=== PATIENT | female | born 1995 | race Caucasian/White ===

== ENCOUNTER → 2016-11-01 | Day surgery (SDC) | payer MEDICAID ==
[~2016-11-01] VITALS: Ht 160 cm; Wt 61.7 kg
[~2016-11-01] MED LIST: BROMFED DM COU118 ML PO; CEFUROXIME AXE250 MG PO; FLONASE 50 MCG16 GM; LORTAB 480 ML480 ML PO; NOMEDS; PREDNISONE 20MG20 MG PO; PREDNISONE1 MG PO; YASMIN 3 MG-0.01 TAB PO
--- NOTE | 2016-11-01 14:05 | Anesthesia Record ---
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
--- NOTE | 2016-11-01 14:05 | Anesthesia Record ---
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
--- NOTE | 2016-11-01 14:06 | Anesthesia Record ---
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 Yes Patient is: Stable Anesthesia complications? No at 1405
--- NOTE | 2016-11-01 14:06 | Anesthesia Record ---
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 Yes Patient is: Stable Anesthesia complications? No at 1405
[2016-11-01 14:18] VITALS: BP 124/73
--- NOTE | 2016-11-01 14:36 | RADIOLOGY REPORT PS360 ---
Procedure: Transesophageal echocardiogram Indication for procedure: Shortness of breath with is activity, mitral valve prolapse evaluate the severity of the mitral regurgitation. Procedure: Patient was brought into cardiac catheter lab holding area in hemodynamically stable condition, after the informed consent moderate conscious sedation was provided by anesthesiologist, local anesthesia was applied and transesophageal echocardiogram was performed without any difficulty. Tissue tolerated the procedure well. Findings: 1. Left atrium is qualitatively moderately enlarged, left atrial appendage is free of thrombus, there is good appendage flow by spectral Doppler. 2. The right atrium is normal size. 3. The intra-atrial septum is intact, there is no flow across the intra-atrial septum. 4. The mitral valve leaflets of myxomatous, there appears to be yamilet prolapse of the posterior mitral leaflet involving mainly p2 segment, there is very eccentric jet of mitral regurgitation present with wide vena contracta representing severe mitral regurgitation. The mitral regurgitation jet is very eccentric directed. There is no mitral stenosis. 5. The tricuspid valve leaflets are minimally thickened, there is trace tricuspid regurgitation. 6. The aortic valve is minimally thickened and fibrosed, its trileaflet aortic valve, there is mild aortic insufficiency present. 7. The pulmonic valve is poorly visualized. 8. Right ventricle is normal size and contractility. 9. The left ventricle is normal size, visually estimated ejection fraction of 55% with no obvious regional wall motion abnormality. 10. Ascending, arch and descending thoracic aorta is normal. 11. No significant pericardial effusion noted. Conclusion: 1. Moderately enlarged left atrium, normal left ventricular size, visually estimated ejection fraction of 55% with no obvious regional wall motion abnormality. 2. 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 3. Agitated saline contrast study fails to identify intracardiac shunt. 4. Mild aortic regurgitation. 5. No significant pericardial effusion noted.
== END ==
LOC: CATHLAB 11:30
PROVIDERS: Internal Medicine Cardiovascular Disease
PROC: B246ZZ4 Ultrasonography of Right and Left Heart, Transesophageal (ICD-10-PCS; principal; 2016-11-01 12:00)
DX: I34.0 Nonrheumatic mitral (valve) insufficiency (principal)
CPT/HCPCS: G0463; J2405

== ENCOUNTER → 2016-11-09 | Outpatient (CLI) | payer MEDICAID | LOC: RT 09:17 | DX: R07.9 Chest pain, unspecified (principal); R06.02 Shortness of breath; I34.0 Nonrheumatic mitral (valve) insufficiency; I34.1 Nonrheumatic mitral (valve) prolapse; R68.89 Other general symptoms and signs ==

== ENCOUNTER 2016-11-17 07:21 | Day surgery (SDC) | payer MEDICAID ==
[2016-11-17 07:57] LABS: HEMOGLOBIN 12.6 g/dL (12.2-16.2); LYMPH # 1.2 K/mm3 (0.7-4.5); LYMPH % 18.8 % (10-50.0)
[2016-11-17 08:01] LABS: BUN 9 mg/dL (7-18)
[2016-11-17 08:02] LABS: GFR (ESTIMATED) 106 ML/MIN (59-)
--- NOTE | 2016-11-17 11:46 | RADIOLOGY REPORT PS360 ---
CARDIAC CATHETERIZATION DATE OF CATHETERIZATION:11/17/2016 10:41 AM PROCEDURES: 1. Right heart catheterization 2. Left heart catheterization 3. Left ventriculogram 4. Selective coronary angiogram INDICATION FOR TEST: 1. Severe mitral regurgitation 2. Anomalous coronary circulation 3. Preoperative evaluation for open surgical repair of the mitral Informed consent was obtained prior to the procedure. COMPLICATIONS: None ESTIMATED BLOOD LOSS: Less than 10 ml. TECHNIQUE: One percent lidocaine was used to anesthetize the right groin. The right femoral artery was accessed via the Seldinger technique. A 4-Kinyarwanda and 7 icelandic sheath was placed in the right femoral artery and vein respectfully. The JR-4 and JL-4 catheter was also used to perform left heart catheterization, left ventriculography and selective coronary angiogram. At the end of the procedure the patient was transferred to the post-op holding area in stable condition for arterial sheath removal. ANGIOGRAPHIC RESULTS: 1. The left main artery normal 2. The left anterior descending artery is normal 3. The circumflex artery is codominant and normal 4. The right coronary artery originates in the right coronary cusp is codominant and normal 5. The MCKENZIE ventriculogram reveals hyperdynamic ventricle estimated at 75% The left ventricular end-diastolic pressure 5 mmHg HEMODYNAMICS: Right atrial pressure is 3 to 5 mm Hg. Pulmonary arterial pressure is 5 mm Hg. Pulmonary artery occlusion pressure is 17/8 mm Hg. SATURATIONS: RA is 87 %. PA is 88 %. IMPRESSION: 1. Normal coronary arteries no angiographic evidence of anomalous circulation 2. Hyperdynamic ventricle consistent with severe mitral regurgitation 3. Normal intracardiopulmonary filling pressures PLAN: 1. Patient will be referred to Dr. Hunter at [facility] for open repair of the mitral valve
--- NOTE | 2016-11-17 11:46 | RADIOLOGY REPORT PS360 ---
CARDIAC CATHETERIZATION DATE OF CATHETERIZATION:11/17/2016 10:41 AM PROCEDURES: 1. Right heart catheterization 2. Left heart catheterization 3. Left ventriculogram 4. Selective coronary angiogram INDICATION FOR TEST: 1. Severe mitral regurgitation 2. Anomalous coronary circulation 3. Preoperative evaluation for open surgical repair of the mitral Informed consent was obtained prior to the procedure. COMPLICATIONS: None ESTIMATED BLOOD LOSS: Less than 10 ml. TECHNIQUE: One percent lidocaine was used to anesthetize the right groin. The right femoral artery was accessed via the Seldinger technique. A 4-Romanian and 7 tajik sheath was placed in the right femoral artery and vein respectfully. The JR-4 and JL-4 catheter was also used to perform left heart catheterization, left ventriculography and selective coronary angiogram. At the end of the procedure the patient was transferred to the post-op holding area in stable condition for arterial sheath removal. ANGIOGRAPHIC RESULTS: 1. The left main artery normal 2. The left anterior descending artery is normal 3. The circumflex artery is codominant and normal 4. The right coronary artery originates in the right coronary cusp is codominant and normal 5. The MCKENZIE ventriculogram reveals hyperdynamic ventricle estimated at 75% The left ventricular end-diastolic pressure 5 mmHg HEMODYNAMICS: Right atrial pressure is 3 to 5 mm Hg. Pulmonary arterial pressure is 5 mm Hg. Pulmonary artery occlusion pressure is 17/8 mm Hg. SATURATIONS: RA is 87 %. PA is 88 %. IMPRESSION: 1. Normal coronary arteries no angiographic evidence of anomalous circulation 2. Hyperdynamic ventricle consistent with severe mitral regurgitation 3. Normal intracardiopulmonary filling pressures PLAN: 1. Patient will be referred to Dr. Hunter at [facility] for open repair of the mitral valve
[2016-11-17 11:52] LABS: ARTERIAL O2 SAT CATH LAB 88.1 % (90-100); VENOUS O2 SAT CATH LAB 87.7 % (75-80)
[2016-11-17 14:56] VITALS: BP 120/76
== END 2016-11-17 15:00 | disposition home or self-care (01) ==
LOC: CATHLAB 07:21
PROVIDERS: Internal Medicine
PROC: B2111ZZ Fluoroscopy of Multiple Coronary Arteries using Low Osmolar Contrast (ICD-10-PCS; 2016-11-17)
PROC: B2151ZZ Fluoroscopy of Left Heart using Low Osmolar Contrast (ICD-10-PCS; 2016-11-17)
PROC: 4A023N8 Measurement of Cardiac Sampling and Pressure, Bilateral, Percutaneous Approach (ICD-10-PCS; principal; 2016-11-17 09:45)
DX: I08.0 Rheumatic disorders of both mitral and aortic valves (principal); R07.9 Chest pain, unspecified; R06.02 Shortness of breath
CPT/HCPCS: C1725; C1769; C1894; J1644; Q9967

== ENCOUNTER → 2017-02-15 | Outpatient (CLI) | payer MEDICAID ==
--- NOTE | 2017-02-15 19:44 | RADIOLOGY REPORT PS360 ---
PROCEDURE: 2-D M-mode and color Doppler study INDICATIONS FOR THE TEST: Chest pain COPD Heart Murmur Tobacco Smoking Palpitations Fatigue Syncope Edema Hypertension Diabetes Mellitus Rheumatic Fever SOBXDOE Obesity Hyperlipidemia Family History HD Additional History MV REPAIR PATIENT INFORMATION HEIGHT: 63 WEIGHT:130 GENDER: Female B/P:125/80 2-D/M-MODE INTERPRETATION: 2-D MEASUREMENTS OBSERVED VALUES IN CMS Right Ventricular Dimension (RVDd) 1.7 Interventricular Septum (Thickness)(IVsd) .7 Left Ventricular Internal Dimensions(LVIDd) 5.0 Left Ventricular Posterior Wall (Thickness)(LVPWd) .9 Aortic Root 2.9 Aortic Cusp Separation 2.2 Left Atrial Dimensions (LAD) 2.2 2D 1. Left atrium is normal size, left ventricle is normal size, there is no concentric left ventricular hypertrophy, visually estimated ejection fraction of 55% with no obvious regional wall motion abnormality. 2. The right atrium and right ventricle are normal size and contractility. 3. The aortic valve is minimally thickened and fibrosed. 4. The mitral valve leaflets of myxomatous, there is mitral valve ring is present. 5. The tricuspid valve is grossly normal. 6. The pulmonic valve is poorly visualized. 7. No significant pericardial effusion noted. DOPPLER INTERROGATION: Doppler interrogation of the aortic, mitral and tricuspid valvular presence of trace aortic, there is no significant mitral regurgitation seen, there is mild tricuspid regurgitation, calculated right ventricular systolic pressure is within normal range. There is no significant mitral inflow obstruction. CONCLUSION: 1. Normal left ventricular size, preserved left ventricular systolic function, visually estimated ejection fraction 55% with no obvious regional wall motion abnormality, there is abnormal septal motion. 2. Status post mitral valve repair without significant mitral regurgitation or mitral inflow obstruction 3. Trace aortic, and mild tricuspid regurgitation, calculated right ventricular systolic pressure is within normal range. 4. No significant pericardial effusion noted.
== END ==
LOC: RT 09:27
DX: Z95.2 Presence of prosthetic heart valve (principal)